=== PATIENT | female | born 1960 | race Caucasian/White ===

== ENCOUNTER → 2017-08-13 | Outpatient (CLI) | payer BC ==
[~2017-08-13] MED LIST: BACTROBAN2% TP; DOCUSATE SODIU100 MG PO; FISH OIL1000 MG PO; HYDROCHLOROTHIA25 M1 PO; HYDROCO/APAP TAB 5-3 OR; HYDROCODONE-APA1 TA1 PO; MOTRIN 600MG.600 MG PO; QUINAPRIL20 MG PO; SMZ/TMP DS TAB 800 OR; VITAMIN B 12 OR; VITAMIN D31000 IU PO
--- NOTE | 2017-08-21 14:25 | RADIOLOGY REPORT PS360 ---
DIG MAMM-SCREEN SARI W/CAD CAD Screening COMPARISON: Digital mammograms 08/04/2016 and 07/30/2015 INDICATION: There is a history of breast cancer patient's mother and aunt both diagnosed after menopause. TECHNIQUE: Standard CC and MLO images were obtained. R2 CAD reviewed. FINDINGS: Scattered fibroglandular densities are seen in both breast primarily upper outer quadrants. There there a few small round benign-appearing density just deep to the nipple left breast which are somewhat radiolucent and these likely represent small evolving oil cysts. The couple benign-appearing calcifications left breast. There is no suspicious lesion and no suspicious microcalcifications. IMPRESSION: Fibrofatty parenchyma with no suspicious lesion seen recommend yearly follow-up BI-RADS CATEGORY: 2_Benign RECOMMENDED FOLLOWUP: 12M 12 MONTH FOLLOW-UP (A letter has been sent to the patient regarding results of the study.)
== END ==
LOC: RAD 08-11 10:30
DX: Z12.31 Encounter for screening mammogram for malignant neoplasm of breast (principal)
CPT/HCPCS: G0202